=== PATIENT | female | born 1980 | race Caucasian/White ===

== ENCOUNTER 2016-12-11 05:09 | Day surgery (SDC) | payer BC ==
[~2016-12-11] VITALS: Ht 157.5 cm; Wt 56.2 kg
--- NOTE | ~2016-12-11 | S ---
[facility] [place] [address] SURGICAL PATH RPT PROCEDURE Name: MARIELOS LEROY Room #: DEP [facility] M.R.#: [id number] Admission: 12/11/16 Date of : 76 Discharge: 12/11/16 Report #: [id number] Path Case #: [id number] PATHOLOGY REPORT COLLECTION DATE: 12/11/2016 RECEIVED DATE: 12/11/2016 SUBMITTING PHYS: Dr. Robby Martinez OTHER PHYS: Dr. Navjot Moore SPECIMEN(S) RECEIVED: A.Left deltoid muscle biopsy B.Left quadricep muscle biopsy * * * * * * * * * * * * FINAL DIAGNOSIS: Please see next page for scanned image of report submitted by provider relations consultant pathologist, Steven Sheppard M.D. (IUV:tanya; d/t: 12/21/2016) PATHOLOGIST: Dari Smith M.D. REPORT ELECTRONICALLY SIGNED BY: Dari Smith M.D. DATE/TIME: 12/21/2016 09:07 * * * * * * * * * * * * GROSS PATHOLOGY: A. Received in formalin, labeled "Charleen-left deltoid muscle biopsy" is a 1.5 x 1.0 x 0.5 cm red fleshy tissue fragment. The specimen is sectioned and is submitted as follows: Approximately a 0.6 x 0.3 cm section is submitted in a 10% formalin container, approximately a 0.6 x 0.3 cm section is submitted fresh into a container containing lightly dampened saline gauze, and approximately a 0.3 x 0.3 cm section is submitted in glutaraldehyde. The specimen is forwarded to [facility]. Received in formalin, labeled "Charleen-left quadricep muscle biopsy" is a 1.5 x 1.0 x 0.5 cm red fleshy tissue fragment. The specimen is sectioned and is submitted as follows: Approximately a 0.6 x 0.3 cm section is submitted in a 10% formalin container, approximately a 0.6 x 0.3 cm section is submitted fresh into a container containing lightly dampened saline gauze, and approximately a 0.3 x 0.3 cm section is submitted in glutaraldehyde. The specimen is forwarded to [facility]. ([facility]; 12/11/2016) CLINICAL HISTORY: None given [address] [address] SURGICAL PATH RPT PROCEDURE Name: MARIELOS LEROY Room #: DEP [facility] Jaspreet#: [id number] Admission: 12/11/16 Date of : 76 Discharge: 12/11/16 Report #: [id number] Path Case #: [id number] INITIAL CPT CODE(S): A; 11433 B; 15871 Professional and Technical services performed by [facility], [id number] , [address], [place] [address]. [facility] [id number] [address] PHONE: [phone] DIRECTOR: Lloyd W. Courtney, M.D. * * * END OF REPORT * * *
--- NOTE | ~2016-12-11 | O ---
[facility] [place] [address] OPERATIVE REPORT Name: MARIELOS LEROY Room #: DEP [facility]..#: [id number] Admission: 12/11/16 Attend Phys: Robby Martinez MD Discharge: 12/11/16 Date of : 76 Report #: [id number] THIS REPORT FOR: //name// CC: Navjot Martinez DATE OF SERVICE: 12/11/2016 PREOPERATIVE DIAGNOSIS: Muscle weakness and pain, rule out polymyositis. POSTOPERATIVE DIAGNOSIS: Muscle weakness and pain, rule out polymyositis. PROCEDURES PERFORMED: 1. Muscle biopsy, left deltoid. 2. Muscle biopsy, left quadricep. SURGEON: Robby Martinez M.D. ANESTHESIA: Local anesthetic 1% Xylocaine with epinephrine mixed with 0.25% Marcaine. COMPLICATIONS: None. ESTIMATED BLOOD LOSS: 5 mL. PROCEDURE NOTE: With the patient in supine position, the left arm was prepped and draped in sterile fashion. About a 3 cm incision was made. The skin was anesthetized with the local anesthetic mentioned above. After incising through the skin and subcutaneous tissue, the fascia was identified. The fascia was then opened. The muscle was then spread and isolated. Also, clamp was placed on the muscle. Once the muscle was placed in the clamp, the muscle around the edge was trimmed sharply. Specimen was placed in a saline soaked gauze, placed in a specimen cup. The fascia was reapproximated with 4-0 PDS. Skin was closed with 5-0 PDS. Biopsy of the left quadricep was then performed in the identical manner. A good muscle sample was also taken from this area. The incision was a little bit larger because of more subcutaneous fatty tissue. It is about a 3.5 cm incision. The muscle was removed without difficulty. Again, placed in a saline soaked gauze and then both of the specimens taken to pathologist. The patient tolerated procedure well. Dermabond and 4 x 4 OpSite used for dressing. <ELECTRONICALLY SIGNED> By: Robby Martinez MD 01/31/17 1207 [id number] Robby Martinez MD /nt
[~2016-12-11 05:09] MED LIST: IBUPROFEN200 M1 PO; POTASSIUM99 M1 PO; PREDNISONE 10 M10 MG PO; PYRIDOSTIGMINE60 M1 PO
[2016-12-11 13:11] LABS: HEMOGLOBIN 14.2 gm/dL (12.0-15.0)
[2016-12-11 13:43] VITALS: BP 107/66
[2016-12-11] MEDS ORDERED: NORCO 5-325 TA1 EACH PO (15:15)
[2016-12-11 15:41] VITALS: BP 107/66
== END 2016-12-11 16:00 | disposition home or self-care (01) ==
LOC: TBA 05:09 → OR 05:09
PROVIDERS: Surgery
DX: M79.1 Myalgia (principal)
CPT/HCPCS: 50010; 50101; 50386; 51477; 54118; 56526; 70005